=== PATIENT | male | born 1950 | race Caucasian/White ===

== ENCOUNTER 2021-12-23 07:52 | Inpatient (IN) ==
[~2021-12-23 07:52] MED LIST: Acetaminophen IV 1,000 MG/100 ML BAG IVPB ONE; Famotidine 20 MG/2 ML VIAL IVP ONE; Ringers Solution, Lactated 1,000 ML IVC ONE
[2021-12-23] MEDS ORDERED: *HR* FentaNYL (PF) 100 MCG/2 ML VIAL ONE (08:02)
[2021-12-23] MEDS ORDERED: *HR* Midazolam HCl 2 MG/2 ML VIAL ONE (08:02)
[2021-12-23] MEDS ORDERED: *HR* Propofol 200 MG/20 ML VIAL IVP ONE (08:02)
[2021-12-23] MEDS ORDERED: Lidocaine -MPF 2% 2 ML VIAL ONE (08:12)
[2021-12-23] MEDS ORDERED: Ondansetron 4 MG/2 ML VIAL ONE (08:12)
[2021-12-23] MEDS ORDERED: *HR* Succinylcholine 200 MG/10 ML VIAL IVP ONE (08:12)
[2021-12-23] MEDS ORDERED: Lidocaine HCL 4 ML Topical Solution (Laryng-O-Jet Kit Sterile Pak) TP ONE (08:12)
[2021-12-23] MEDS ORDERED: Naloxone 0.4 MG/ML INJ IVP PRN (08:34)
[2021-12-23] MEDS ORDERED: Ondansetron 4 MG/2 ML VIAL IVP PRN (08:34)
[2021-12-23] MEDS ORDERED: *HR* FentaNYL (PF) 100 MCG/2 ML VIAL IVP PRN ×2 (08:34→11:50)
[2021-12-23] MEDS ORDERED: Nitroglycerin 0.4 MG TAB.SUBL SL PRN (08:34)
[2021-12-23] MEDS ORDERED: Ipratropium/Albuterol Neb 3 ML IH ONE (08:34)
[2021-12-23] MEDS ORDERED: *HR* Rocuronium Bromide 50 MG/5 ML VIAL ONE (09:06)
[2021-12-23] MEDS ORDERED: EPHEDrine sulfate 50 MG/10 ML VIAL IVP ONE (09:38)
[2021-12-23] MEDS: Ipratropium/Albuterol Neb 3 ML IH SCH ×3 (11:38→20:42)
[2021-12-23] MEDS: MethylPREDNISolone 40 MG/ML VIAL IVP SCH (12:12)
[2021-12-23] MEDS ORDERED: *HR* FentaNYL (PF) 100 MCG/2 ML VIAL IVP ONE (14:25)
[2021-12-23] MEDS ORDERED: *HR* HYDROcodone/Acet 5/325 mg TABLET PO ONE (20:10)
[2021-12-23] MEDS ORDERED: Acetaminophen 325 MG TABLET PO ONE (20:16)
[2021-12-24 06:02] LABS: Basophils % 0.1 %; Eosinophils % 0.2 %; Hematocrit 40.2 % (37.5-50.1); Hemoglobin 12.9 g/dL (12.9-16.9); Immature Granulocytes % 0.5 % (0-4); Lymphocytes # 1.2 K/mcL (0.6-4.6); Lymphocytes % 10.9 %; Mean Corpuscular HGB Conc 32.1 g/dL (31.6-35.5); Mean Corpuscular Hemoglobin 33.5 pg (28.0-33.3); Mean Corpuscular Volume 104.4 fL (83.0-100.0); Mean Platelet Volume 9.8 fL (9.4-12.4); Monocytes # 0.8 K/mcL (0.0-1.3); Monocytes % 7.1 %; Neutrophils # 9.2 K/mcL (1.6-8.9); Platelet Count 298 K/mcL (140-400); Red Blood Count 3.85 M/mcL (4.19-5.50); Red Cell Distribution Width 12.6 % (11.5-14.5); Segmented Neutrophils % 81.2 %
[2021-12-24 06:03] LABS: White Blood Count 11.3 K/mcL (4.3-11.1)
[2021-12-24 06:20] LABS: BUN/Creatinine Ratio 18 (6-26); Blood Urea Nitrogen 15 mg/dL (8-23); Calcium 8.7 mg/dL (8.6-10.3); Carbon Dioxide 27 mEq/L (23-29); Chloride 103 mEq/L (98-107); Glucose 100 mg/dL (70-105); Osmolality,Calculated 283 (280-300); Potassium 4.8 mEq/L (3.5-5.1); Sodium 136 mEq/L (136-145)
[2021-12-24] MEDS ORDERED: Ipratropium/Albuterol Neb 3 ML IH PRN ×2 (07:42→19:23)
[2021-12-24] MEDS: MethylPREDNISolone 40 MG/ML VIAL IVP SCH (08:23)
[2021-12-24] MEDS ORDERED: Budesonide/Formoterol 80/4.5 1 PUFF INH IH SCH ×2 (10:00→22:00)
[2021-12-24] MEDS ORDERED: Naloxone 0.4 MG/ML INJ IVP PRN (19:23)
[2021-12-24] MEDS ORDERED: Nitroglycerin 0.4 MG TAB.SUBL SL PRN (19:23)
[2021-12-25 02:30] LABS: Basophils % 0.1 %; Eosinophils % 0.2 %; Hematocrit 39.5 % (37.5-50.1); Hemoglobin 12.9 g/dL (12.9-16.9); Immature Granulocytes % 0.5 % (0-4); Lymphocytes # 1.8 K/mcL (0.6-4.6); Lymphocytes % 18.6 %; Mean Corpuscular HGB Conc 32.7 g/dL (31.6-35.5); Mean Corpuscular Hemoglobin 33.9 pg (28.0-33.3); Mean Corpuscular Volume 103.9 fL (83.0-100.0); Mean Platelet Volume 9.7 fL (9.4-12.4); Monocytes # 0.9 K/mcL (0.0-1.3); Monocytes % 9.3 %; Neutrophils # 6.8 K/mcL (1.6-8.9); Platelet Count 293 K/mcL (140-400); Red Cell Distribution Width 12.7 % (11.5-14.5); Segmented Neutrophils % 71.3 %; White Blood Count 9.6 K/mcL (4.3-11.1)
[2021-12-25 05:26] LABS: Calcium 9.2 mg/dL (8.6-10.3); Potassium 4.7 mEq/L (3.5-5.1)
[2021-12-25] MEDS ORDERED: diazePAM 5 MG TABLET PO PRN (08:18)
[2021-12-25] MEDS ORDERED: Baclofen 10 MG TABLET PO PRN (08:18)
[2021-12-25] MEDS: Folic Acid 1 MG TABLET PO SCH (08:32)
[2021-12-25] MEDS: MethylPREDNISolone 40 MG/ML VIAL IVP SCH (08:33)
[2021-12-25] MEDS: Fluticasone Propionate Nasal 50 MCG/SPRAY BOTTLE NS SCH (08:34)
[2021-12-25] MEDS: CYCLOSPORINE OP SCH ×2 (08:34→20:17)
[2021-12-25] MEDS: PrednisoLONE Acetate 1% Opth 5 ML BOTTLE BOTH EYES SCH ×2 (08:34→20:17)
[2021-12-25 22:59] VITALS: BP 114/54; TEMP 97.8; O2SAT 92
[2021-12-26] MEDS: MethylPREDNISolone 40 MG/ML VIAL IVP SCH (07:33)
[2021-12-26 07:43] VITALS: PULSE 59
[2021-12-26] MEDS: CYCLOSPORINE OP SCH (08:09)
[2021-12-26] MEDS: Folic Acid 1 MG TABLET PO SCH (08:09)
[2021-12-26] MEDS: Fluticasone Propionate Nasal 50 MCG/SPRAY BOTTLE NS SCH (08:09)
[2021-12-26] MEDS: PrednisoLONE Acetate 1% Opth 5 ML BOTTLE BOTH EYES SCH (08:10)
[2021-12-26 09:04] LABS: Basophils % 0.1 %; Eosinophils # 0.1 K/mcL (0.0-0.6); Eosinophils % 0.7 %; Hematocrit 45.9 % (37.5-50.1); Immature Granulocytes % 0.3 % (0-4); Lymphocytes % 17.4 %; Mean Corpuscular HGB Conc 33.1 g/dL (31.6-35.5); Mean Corpuscular Hemoglobin 34.2 pg (28.0-33.3); Mean Corpuscular Volume 103.4 fL (83.0-100.0); Mean Platelet Volume 9.4 fL (9.4-12.4); Monocytes # 0.8 K/mcL (0.0-1.3); Monocytes % 6.7 %; Neutrophils # 8.6 K/mcL (1.6-8.9); Platelet Count 313 K/mcL (140-400); Red Blood Count 4.44 M/mcL (4.19-5.50); Red Cell Distribution Width 12.3 % (11.5-14.5); Segmented Neutrophils % 74.8 %; White Blood Count 11.5 K/mcL (4.3-11.1)
[2021-12-26 09:25] LABS: Calcium 9.3 mg/dL (8.6-10.3); Potassium 3.6 mEq/L (3.5-5.1)
[2021-12-26 09:36] LABS: Hemoglobin 15.2 g/dL (12.9-16.9)
== END 2021-12-26 12:28 | disposition home or self-care (01) | DRG 165 ==
LOC: SAMDAY 07:52 → SUATTDRO 10:49 → ICNU 10:49 → 2NNU 12-24 14:28
PROVIDERS: ADMIT Internal Medicine Critical Care Medicine; ATTEND Student in an Organized Health Care Education/Training Program
PROC: ENDOLBX (2021-12-23 09:00)